=== PATIENT | female | born 2000 | race Caucasian/White ===

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

== ENCOUNTER 2023-11-04 10:13 | Emergency (ER) | payer BC, OTHER ==
[2023-11-04] MEDS: SODIUM CHLORIDE 0.9% 1,000 ML IV STA (12:24)
[2023-11-04] MEDS: IBUPROFEN 800 MG TAB PO STA (12:25)
--- NOTE | 2023-11-04 12:31 | XR ---
EXAMINATION TYPE: XR chest 2V DATE OF EXAM: 11/04/2023 12:12 PM CLINICAL INDICATION:Female, 23 years old with history of elevated heart rate; [facility] COMPARISON: Chest radiographs from TECHNIQUE: XR chest 2V Frontal and lateral views of the chest. FINDINGS: Lungs/Pleura: There is no evidence of pleural effusion, focal consolidation, or pneumothorax. Pulmonary vascularity: Unremarkable. Heart/mediastinum: Cardiomediastinal silhouette is unremarkable. Musculoskeletal: No acute osseous pathology. Other findings: None Lines/Tubes: IMPRESSION: No acute cardiopulmonary disease/process.
--- NOTE | 2023-11-04 13:03 | ED ---
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 Patient went to urgent care this morning due to burn on her left forearm that occurred last evening at 1 in the morning. She states that she was using a nitrous oxide take and the tank burned her arm. She has not tried to urgent care this morning she was found to have an elevated heart rate and temperature was instructed come to emergency room for further evaluation. Patient states that she does not have any symptoms of chest pain, dizziness, pressure, palpitations, lightheadedness or fatigue. - Related Data Home Medications Medication Instructions Recorded Confirmed [place] 0.15-0.03mg 1 tab PO HS 11/04/23 11/04/23 Famotidine 40 mg PO HS 11/04/23 11/04/23 Pantoprazole [Protonix] 40 mg PO DIRECTED 11/04/23 11/04/23 Sertraline [Zoloft] 150 mg PO HS 11/04/23 11/04/23 busPIRone HCl [Buspar] 10 mg PO BID 11/04/23 11/04/23 Allergies Allergy/AdvReac Type Severity Reaction Status Date / Time No Known Allergies Allergy Verified 11/04/23 14:51 Review of Systems ROS Statement: Those systems with pertinent positive or pertinent negative responses have been documented in the HPI. ROS Other: All systems not noted in ROS Statement are negative. 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 Absent: scleral icterus, conjunctival injection, periorbital swelling ENT exam: Present: normal exam, mucous membranes moist Neck exam: Present: normal inspection. Absent: tenderness, meningismus, lymphadenopathy Respiratory exam: Present: normal lung sounds bilaterally. Absent: respiratory distress, wheezes, rales, rhonchi, stridor Cardiovascular Exam: Present: normal rhythm, normal heart sounds. Absent: regular rate (sinus arrythmia), systolic murmur, diastolic murmur, rubs, gallop, clicks GI/Abdominal exam: Present: soft, normal bowel sounds. Absent: distended, tenderness, guarding, rebound, rigid Right Upper Arm exam: Present: swelling, erythema (2 cm area of erythema and male with no signs of soft tissue infection) Back exam: Present: normal inspection Neurological exam: Present: alert, oriented X3, CN II-XII intact Psychiatric exam: Present: normal affect, normal mood Skin exam: Present: warm, dry, intact, normal color. Absent: rash Course Vital Signs 11/04/23 11/04/23 11/04/23 10:30 13:09 14:39 Temperature 98.0 F 98.4 F 98.7 F Pulse Rate 115 H 70 82 Respiratory 18 14 16 Rate Blood Pressure 130/88 123/78 116/75 O2 Sat by Pulse 100 100 98 Oximetry Medical Decision Making - Medical Decision Making Was pt. sent in by a medical professional or institution (Dr. PA, ENVIRONMENTAL AIDE, urgent care, hospital, or care home...) When possible be specific @ -No Did you speak to anyone other than the patient for history (EMS, parent, family, police, friend...)? What history was obtained from this source @ -No Did you review nursing and triage notes (agree or disagree)? Why? @ -I reviewed and agree with nursing and triage notes Were old charts reviewed (outside hosp., previous admission, EMS record, old EKG, old radiological studies, urgent care reports/EKG's, care home records)? Report findings @ -No old charts were reviewed Differential Diagnosis (chest pain, altered mental status, abdominal pain women, abdominal pain men, vaginal bleeding, weakness, fever, dyspnea, syncope, headache, dizziness, GI bleed, back pain, seizure, CVA, palpatations, mental health, musculoskeletal)? @ -Number facial skin burn, tachycardia, viral infection, fever EKG interpreted by me (3pts min.). @ -Completed at 1254 with sinus rhythm with sinus arrhythmia, ventricular rate 74, NC interval 142, QTc 11/07/2018. No acute signs of ischemia. X-rays interpreted by me (1pt min.). @ -X-ray no acute cardiopulmonary process CT interpreted by me (1pt min.). @ -None done U/S interpreted by me (1pt. min.). @ -None done What testing was considered but not performed or refused? (CT, X-rays, U/S, labs)? Why? @ -None What meds were considered but not given or refused? Why? @ -None Did you discuss the management of the patient with other professionals (professionals i.e. , PA, ENVIRONMENTAL AIDE, lab, RT, psych nurse, social service director, career technical supervisor, teacher, commissioned security officer, onsite case manager)? Give summary @ -No Was smoking cessation discussed for >3mins.? @ -No Was critical care preformed (if so, how long)? @ -No Were there social determinants of health that impacted care today? How? (Homelessness, low income, unemployed, alcoholism, drug addiction, transportation, low edu. Level, literacy, decrease access to med. care, longterm, rehab)? @ -No Was there de-escalation of care discussed even if they declined (Discuss DNR or withdrawal of care, Hospice)? DNR status @ -No What co-morbidities impacted this encounter? (DM, HTN, Smoking, COPD, CAD, Cancer, CVA, ARF, Chemo, Hep., AIDS, mental health diagnosis, sleep apnea, morbid obesity)? @ -None Was patient admitted / discharged? Hospital course, mention meds given and route, prescriptions, significant lab abnormalities, going to OR and other pertinent info. @ -23-year-old female chief complaint of frostbite/burn on her right forearm. Patient was sent by urgent care for evaluation of elevated and potentially abnormal heart rate patient to being febrile. On triage patient was found to have a temperature of 98.7. Patient states that she has been experiencing headache, and suffers with migraines frequently. Patient was given 800 mg of ibuprofen with relief. EKG with no acute ischemic changes, sinus arrhythmia interpreted as above. Due to patient fever at urgent care, patient sent for COVID, flu, RSV testing due to complaints of runny nose, cough and congestion over the past 3 days. Chest x-ray no acute cardiopulmonary process noted. Prehensile physical exam was completed the patient with no acute red flag findings. On the patient's right forearm she was noted to have a almost circular erythematous edematous raised area measuring approximately 3 cm due to burn from a nitrous oxide tank pain. Patient states that she has some tenderness to this area, but still has full mobility of her forearm and wrist, denies any paresthesias to the area. Was placed on a continuous heart monitor which revealed no signs of dysrhythmia, patient was found to have multiple runs of sinus arrhythmia, I discussed with patient the findings of this that these are benign, with patient being asymptomatic she is stable for discharge home. Only, patient is negative for COVID, flu, RSV. She states that her temperature was found to be 100.0 at the urgent care, she states that she does have a mild runny nose and cough with the symptoms could be due to a viral infection. I discussed this case with my attending Dr. Lehman is agreeable with plan for discharge. Undiagnosed new problem with uncertain prognosis? @ -No Drug Therapy requiring intensive monitoring for toxicity (Heparin, Nitro, Insulin, Cardizem)? @ -No Were any procedures done? @ -No Diagnosis/symptom? @ -Tachycardia, superficial skin burn Acute, or Chronic, or Acute on Chronic? @ -Acute Uncomplicated (without systemic symptoms) or Complicated (systemic symptoms)? @ -Uncomplicated Side effects of treatment? @ -No Exacerbation, Progression, or Severe Exacerbation? @ -No Poses a threat to life or bodily function? How? (Chest pain, [place], CA, pneumonia, PE, COPD, DKA, ARF, appy, cholecystitis, CVA, Diverticulitis, Homicidal, Suicidal, threat to staff... and all critical care pts) @ -No - Lab Data Lab Results 11/04/23 Range/Units 12:15 Influenza Type A (PCR) Not Detected (Not Detectd) Influenza Type B (PCR) Not Detected (Not Detectd) RSV (PCR) Not Detected (Not Detectd) SARS-CoV-2 (PCR) Not Detected (Not Detectd) Disposition Clinical Impression: Tachycardia, Sinus arrhythmia, Superficial burn of forearm Narrative: Return to the emergency department if symptoms worsen or do not prove Disposition: HOME SELF-CARE Condition: Good Instructions (If sedation given, give patient instructions): Superficial Burn (ED) Is patient prescribed a controlled substance at d/c from ED?: No Referrals: Virginie Lehman DO [Primary Care Provider] - 1-2 days Time of Disposition: 14:05
[2023-11-04 14:52] VITALS: BP 116/75; PULSE 82; RESP 16; TEMP 98.7
== END 2023-11-04 14:47 | disposition home or self-care (01) ==
LOC: EC 10:13
DX: T22.012A Burn of unspecified degree of left forearm, initial encounter (principal); T31.0 Burns involving less than 10% of body surface; R00.0 Tachycardia, unspecified; I49.8 Other specified cardiac arrhythmias; F17.290 Nicotine dependence, other tobacco product, uncomplicated
CPT/HCPCS: 71046; 87636; 93005; 96360; 99284